=== PATIENT | female | born 1975 | race Caucasian/White ===

== ENCOUNTER 2017-01-14 07:58 | Observation (INO) | payer BC ==
--- NOTE | 2017-01-13 20:17 | PDGENHP ---
History and Physical - Chief Complaint HIP PAIN - History of Present Illness 1. Bilateral~Femoroacetabular impingement (GABRIELLA) Cam type, with~resultant labral tear;~LEFT SIDE SYMPTOMATIC 2. Left low normal/~Borderline Hip Dyplasia 3. Left Hip Arthroscopy 2015 HISTORY OF PRESENT ILLNESS: Eriis a 41 y.o.~active female~who I have had the pleasure to consult on today.~I have enjoyed meeting her. She~lives in [place], [place]. 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 ~She~is single; she~has 4~children. ~Erienjoys skiing, travel. Hunter's left~hip pain started after a fall in 2012, with some~recalled trauma or injury, and with no~previous complaints.~Eridoes not have~a known history of hip dysplasia. April 2015: left hip arthroscopy; Dr. Fernandez in [place]. ~She fell three times after this surgery. Presentation today is of~anterior, posterior left~hip pain. ~The hip does~wake her~at night and does~click and catch on her. Sitting can be a real struggle~ for her. Eridoes not~report suffering from lower back pain episodes. Erihas~participated in physical therapy and has~tried other conservative measures including cortisone hip injections (August 2014, GT took two days to get relief and lasted 7 days; January 2015, took a few days for relief and only lasted 7 days; July 2015 only lasted a couple of days) . She~has not~received sufficient symptomatic improvement. Erihas~utilized medication for pain management, including NSAID and Vicodin. Erihas used medication intermittently since the pain began. Eridenies issues with the right~hip. ~ Eriunderstands that she~has a hip and pelvis problem which should be researched and wishes to get a better understanding of her~hip status, followed by an establishment of a treatment strategy, hoping she~would be able to get back to her~well being active life. History: Past medical history: ~ Patient ~has a past medical history of Exercise-induced asthma and Pancreatitis (1998)., anxiety, depression, ADHD Relevant familial history: Father: CAD, Diabetes ~~~~~~~~~~~~~~~~~~~~~~~~~~~~~~~~~~~~Mom: hypothyroid, CRPS (hands) Past surgical history: No. Surgery Anesthesia 1 Left Hip arthroscopy general 2 Lap Ashlyn general 3 Right Knee scope general 4. ~~~~~~~~~~~~~~~~Left shoulder scope 5. ~~~~~~~~~~~~~~~~, Tubal, Hysterectomy 6. ~~~~~~~~~~~~~~~~Breast reduction x2 7. ~~~~~~~~~~~~~~~~Abdominoplasty Eridenies problematic issues with general anesthesia in the past. I have reviewed, verified and agree with the past medical, surgical, family and social history. Current Medications:~has a current medication list which includes the following prescription(s): aripiprazole, bupropion, methylphenidate, and zolpidem. ALLERGIES:~is allergic to morphine; advair diskus [fluticasone-salmeterol]; benicar [olmesartan]; ceclor [cefaclor]; ibuprofen; latex; penicillins; and prednisone. Objective: Physical Examination: Eriis 5~feet 2~inches tall and weighs~164~Lbs. Eriis AAO x3; she~is well- nourished, in NAD. Skin is warm and dry. ~Breathing is non-labored. ~CV with RRR by pulse. Abdomen is soft, NTND. Currently, she~walks with a abnormal antalgic favoring right side~gait. Trendelenburg sign is negative~and proprioception~is reduced, left~side. She~presents~with mild~signs of joint laxity.~Beightons Score: 3 Lower spine examination is negative~for sciatic or femoral nerve irritation with negative~SLR &~femoral stretch tests. Range of motion of the spine is normal~for flexion, extension, and rotations, with~associated pain. Strength, Sensation and pulses are normal - bilaterally Ankles and knees exams are normal~and no~mal-alignment is evident. She~has~no leg length discrepancy. Thigh circumference is asymmetric~with low~muscle atrophy~on left~side. Hip ROM (degrees): FL ER At 90~hip FL IR At 90~hip FL AB AD EX IR Neutral hip ER Neutral hip R 105 45 20 40 15 10 20 25 L 105 50 30 45 15 10 50 25 Specific hip and pelvis tests: Quadrant HAFSA Roll Add. Longus R Negative Negative Negative Negative L +++ +++ Negative +++ Glut. Med ITB Pos. Imp R Negative 5/5 strength Negative 5/5 strength Negative L +++ 4+/5 strength Negative 4+/5 strength Negative Squeeze test measured normal Bony Symphysis pubis is pain free~to touch while concentric activity of the rectus abdominis, does not~produce pain at its insertion. Ilio Psos specific tests are positive for pain during cycling for the left hip~ and remarkable for non painful snap HF is weak the left hip. Anterior/posterior capsule tenderness LEFT Greater trochanteric burse is painful~on the left hip. Piriformis tests: FAIR is negative, with no~local signs of neuritis related to sciatic nerve. SIJs examination is produces pain on left side~with normal~HAFSA in relation and local tenderness. Hamstrings tests are negative~functional contraction and positive~tendinopathy the left hip. On a daily basis, the following percentages reflect Erene's overall total pain: Deep hip: ~50% GT: 50% Imaging: Radiology studies which I~have personally reviewed, analyzed and measured are below: XR: AP of the hip and pelvis: Performed in a good~technique Coccyx to pubic symphysis distance 1.6~cm. 5~degrees caudal [place]~Lines are preserved. Minimal~Pathological signs are seen in the Symphysis Pubis. Minimal~Pathological signs are seen at the Ischial~tuberosity. ~ Specific measurements show: NSA~ LCE Sourcil~Angle Sharp's angle Lat. Cam Lat. Pincer C.Over~sign Head~Coverage % ATDmm R N 27 6 41 + - 12-2 84 N L N 26 9 43 + - - 77 N Pos. wall sign ISS NAD ~~Dysplasia Comments R Negative Negative 10.6~mm Negative L + Negative 10.4~mm + Sclerosis Sup. Lat. OA Cysts Joint Space-WBZ Joint Space-Medial R Negative Negative Negative 6.2~mm 5.8~mm L Negative Negative Negative 4.8~mm 5.3~mm MRI shows: good cartilage quality, no bone edema CT MEASUREMENTS: Right hip: Lateral center edge angle: 27 degrees Anterior center edge angle: 56 degrees Equatorial acetabular version angle: 20 degrees anteverted. Cranial acetabular version angle: 5 degrees anteverted. Femoral neck shaft angle: 127 degrees Femoral neck version angle: Anteverted 6 degrees Femoral shaft torsion angle: Medialized 18 degrees Left hip: Lateral center edge angle: 30 degrees Anterior center edge angle: 46 degrees Equatorial acetabular version angle: 17 degrees anteverted. Cranial acetabular version angle: 8 degrees anteverted. 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 She also have sign of borderline Left instability with low normal/high BL Dysplasia and mild tissue laxity. Physical examination, imaging, and her~story correspond with the diagnosis mentioned above. I explained that hip dysplasia is a condition wherein the hip joint has excessive play~and instability due to a variety of factors, including the depth and adequacy of the socket, the orientation of the femur bone, and ligament laxity around the hip joint. Dysplasia ranges in severity from borderline to cinthya, with treatment options being specific to the specific nature of the problem. Left untreated, the instability in the hip joint can cause progressive tearing of the labrum and deterioration of the surface cartilage, ultimately resulting in progressive osteoarthritis of the hip. I explained that femoroacetabular impingement (GABRIELLA - Cam type) arises due to a bony or soft tissue conflict between the femur (ball) and acetabulum (socket) caused by an abnormality in the shape of the femoral head and neck. Over time, repetitive impingement can result in damage to the labrum and adjacent surface cartilage within the socket, ultimately giving rise to progressive osteoarthritis of the hip. I explained that although a labral tear can be a source of pain, it is rarely the root of the problem and typically occurs secondary to an underlying abnormality in the shape and mechanics of the hip joint. I reviewed conservative treatment options for Dysplasia and GABRIELLA including activity modification to avoid positions of impingement or instability, physical therapy, non-steroidal anti-inflammatory medications, and various injections (corticosteroid and PRP) aimed at reducing inflammation in the hip joint or/and preventing dynamic instability and impingement. PRP injections may promote healing and reduce symptoms in certain cases but it will not repair chronically damaged tissue. Although these measures may help to buy time~and reduce current level of symptoms, they are not a definitive solution to the problem given the underlying abnormality in the shape of the hip joint. Patients who have failed conservative management and continue to experience symptoms are candidates for definitive surgical treatment, which may consist of hip arthroscopy alone or in combination with more invasive bony realignment procedures of the hip socket and/or femur called periacetabular osteotomy (ALEX). Hip arthroscopy typically includes treating the labrum with either repair or reconstruction of the torn labrum; as well as addressing the underlying abnormalities by restoring the normal shape to the hip joint. If the cartilage is damaged a Microfracture surgical procedure may also be necessary to help stimulate the growth of fibrocartilage. If a patient requires a labral reconstruction or a Microfracture, the initial rehabilitation from the surgery may take longer, but the terminal computer operator results are typically favorable. I reviewed the technical aspects of hip arthroscopy including risks, benefits, and expected course of recovery. Hunter~understands that hip arthroscopy is a minimally invasive outpatient procedure carried out through small incisions on the outer aspect of the hip joint. During surgery, the labral tear will be identified and either repaired or reconstructed~using bone anchors and suture material. Additionally, any excessive bone will be removed with a high-speed eliseo to reshape the hip joint and restore normal anatomy. Risks include infection, bleeding, injury to nearby nerves or vessels, stiffness, persistent pain, instability, venous thromboembolic disease, and traction related complications including temporary foot numbness. Rarely, revision surgery may be required to address these problems. Overall recovery takes approximately 4~~ 8~months depending on the extent of damage and degree of repair. In the event that the labral tissue quality is inadequate for successful repair and healing, Hunter~understands that a labral reconstruction will be performed. This procedure entails placing a cadaver tissue graft within the hip joint and stabilizing it with bone anchors to build a new labrum. The overall recovery time for labral reconstruction is similar to that of labral repair, although the surgical procedure takes longer to perform. At this time due to the very low probability Hunter will need a bony realignment procedure in the form of ALEX I did not~review the technical aspects of periacetabular osteotomy (ALEX) with her. Due to the CT being performed after we saw her, we will discuss this aspect in out next meeting or over the phone. ALEX is an inpatient procedure carried out through two medium sized incisions on the front and back of the hip joint. The hip socket is cut, realigned, and stabilized with 2 ~3 internal screws. Risks include infection, bleeding, injury to nearby nerves or vessels, stiffness, persistent pain, instability, failure of bony healing, implant related complications, and venous thromboembolic disease. Rarely, revision surgery may be required to address these problems. Risks, potential complications, side effects and recovery from surgical procedure were discussed in length. This surgery is an open procedure, and though patients tend to do well in the long-term, it involves significant pain in the first 2-4 weeks post-op and a rather lengthy rehab.~Overall recovery takes approximately 6 ~12~months depending on the extent of damage and degree of repair. Hunter~will review the info presented. In order to obtain more detailed information regarding the alignment, orientation, and shape of the bony hip and pelvis I will order a CT scan to be performed. The results of the CT scan, including femoral torsion and acetabular version measured values and 3D images, will aid me in deciding on the best treatment strategy and surgical pre-planning. Hunter~will contact us if she~wishes to pursue further treatment in the future. Hunter~is happy with this plan. I have also supplied her~with handouts, outlining the expected surgical treatment and rehab involved. I wish~Eriall the best, ~~ August Diamond, PAC History Information - Allergies/Home Medication List Allergies/Adverse Reactions: gabapentin Allergy (Severe, Verified 01/13/17 11:57) FLUID LUNGS latex Allergy (Severe, Verified 01/13/17 11:57) DYSPNEA, RASH morphine Allergy (Severe, Verified 01/13/17 11:57) Anaphylaxis amoxicillin Allergy (Intermediate, Verified 01/13/17 11:57) Rash cefaclor [From Ceclor] Allergy (Intermediate, Verified 01/13/17 11:57) Rash erythromycin base Allergy (Intermediate, Verified 01/13/17 11:57) Rash ibuprofen [From Motrin] Allergy (Intermediate, Verified 01/13/17 11:57) Rash Penicillins Allergy (Intermediate, Verified 01/13/17 11:57) Rash vancomycin Allergy (Intermediate, Verified 01/13/17 11:57) Rash fluticasone [From Advair Diskus] Allergy (Verified 01/13/17 11:57) nebivolol [From Bystolic] Allergy (Verified 01/13/17 11:57) Rash olmesartan [From Benicar] Allergy (Verified 01/13/17 11:57) Rash prednisone Allergy (Verified 01/13/17 11:57) INTOLERANCE salmeterol [From Advair Diskus] Allergy (Verified 01/13/17 11:57) Home Medications: Abilify 01/13/17 [Last Taken Unknown] Ambien 01/13/17 [Last Taken Unknown] Methylphenidate 01/13/17 [Last Taken Unknown] Wellbutrin Sr 01/13/17 [Last Taken Unknown] I have personally reviewed and updated: medical history - Social History Smoking Status: Never smoked Review of Systems Review of Systems: Physical Exam Physical Exam:
[2017-01-14] MEDS ORDERED: PREGABALIN 150 MG CAP PO ONE (08:19)
[2017-01-14] MEDS ORDERED: ACETAMINOPHEN 500 MG TAB PO ONE (08:19)
[2017-01-14] MEDS ORDERED: CLINDAMYCIN 900 MG/DEXTROSE 50 ML IV ONE (08:19)
[2017-01-14] MEDS ORDERED: EPINEPHrine 30 MG/30 ML MDV ONE (09:18)
[2017-01-14] MEDS ORDERED: BUPIVACAINE/EPI 0.5% 30 ML SDV ONE (09:18)
[2017-01-14] MEDS ORDERED: MIDAZOLAM 2 MG/2 ML VIAL IVP ONE (09:30)
--- NOTE | 2017-01-14 09:30 | PDANEPAE ---
ANE History of Present Illness 41 yo F s/p L hip trauma, s/p labral repair w femoroplasty, here for revision ANE Past Medical History - Cardiovascular History Hx Hypertension: No Hx Arrhythmias: No Hx Chest Pain: No Hx Coronary Artery / Peripheral Vascular Disease: No Hx CHF / Valvular Disease: No Hx Palpitations: No - Pulmonary History Hx COPD: No Hx Asthma/Reactive Airway Disease: Yes Hx Recent Upper Respiratory Infection: No Hx Oxygen in Use at Home: No Hx Sleep Apnea: No Sleep Apnea Screening Result - Last Documented: Negative Pulmonary History Comment: ACTIVITY INDUCED ASTHMA - Neurologic History Hx Cerebrovascular Accident: No Hx Seizures: No Hx Dementia: No Neurologic History Comment: MIGRAINES JUST STARTED RECENTLY - Endocrine History Hx Diabetes: No - Renal History Hx Renal Disorders: No - Liver History Hx Hepatic Disorders: Yes Hepatic History Comment: COLTEN. HX PANCREATITIS LAST EPISODE ONE YR AGO - Neurological & Psychiatric Hx Hx Neurological and Psychiatric Disorders: Yes Neurological / Psychiatric History Comment: DEPRESSION - Cancer History Hx Cancer: No - Congenital Disorder History Hx Congenital Disorders: No - GI History Hx Gastrointestinal Disorders: No - Other Health History Other Health History: [facility] INF ONCE SURGERY SHOULDER - Chronic Pain History Chronic Pain: Yes (L HIP) - Surgical History Prior Surgeries: CHOLECYSTECTOMY. R KNEE. L CLAVICLE/SHOULDER. R TMJ. C SECTION. HYSTERECTOMY. ABDOMINO PLASTY. BREAST REDUCTION X2 ANE Review of Systems Review of Systems: - Exercise capacity METS (RN): 4 METS ANE Patient History - Allergies Allergies/Adverse Reactions: gabapentin Allergy (Severe, Verified 01/13/17 11:57) FLUID LUNGS latex Allergy (Severe, Verified 01/13/17 11:57) DYSPNEA, RASH morphine Allergy (Severe, Verified 01/13/17 11:57) Anaphylaxis amoxicillin Allergy (Intermediate, Verified 01/13/17 11:57) Rash cefaclor [From Ceclor] Allergy (Intermediate, Verified 01/13/17 11:57) Rash erythromycin base Allergy (Intermediate, Verified 01/13/17 11:57) Rash ibuprofen [From Motrin] Allergy (Intermediate, Verified 01/13/17 11:57) Rash Penicillins Allergy (Intermediate, Verified 01/13/17 11:57) Rash vancomycin Allergy (Intermediate, Verified 01/13/17 11:57) Rash fluticasone [From Advair Diskus] Allergy (Verified 01/13/17 11:57) nebivolol [From Bystolic] Allergy (Verified 01/13/17 11:57) Rash olmesartan [From Benicar] Allergy (Verified 01/13/17 11:57) Rash prednisone Allergy (Verified 01/13/17 11:57) INTOLERANCE salmeterol [From Advair Diskus] Allergy (Verified 01/13/17 11:57) - Home Medications Home Medications: Abilify 01/13/17 [Last Taken 01/13/17 19:00] Ambien 01/13/17 [Last Taken 01/12/17] Methylphenidate 01/13/17 [Last Taken 01/12/17] Wellbutrin Sr 01/13/17 [Last Taken 01/13/17 19:00] - NPO status NPO Status: no food or drink >8 hours NPO Since - Liquids (Date): 01/13/17 NPO Since - Liquids (Time): 19:00 NPO Since - Solids (Date): 01/13/17 NPO Since - Solids (Time): 17:30 - Anes Hx Anes Hx: post operative nausea and vomiting - Smoking Hx Smoking Status: Never smoked - Alcohol Use Alcohol Use: None - Family Anes Hx Family Anes Hx: none Family Hx Anesthesia Complications: NEG ANE Labs/Vital Signs - Vital Signs Blood Pressure: 145/98 Heart Rate: 99 Respiratory Rate: 16 O2 Sat (%): 99 Height: 160.02 cm Weight: 73.482 kg ANE Physical Exam - Airway Neck exam: FROM Mallampati Score: Class 2 Mouth exam: normal dental/mouth exam - Pulmonary Pulmonary: no respiratory distress, clear to auscultation - Cardiovascular Cardiovascular: regular rate and rhythym, no murmur, rub, or gallop - ASA Status ASA Status: II ANE Anesthesia Plan Anesthesia Plan: general endotracheal anesthesia (1/2 mac propofol) Total IV Anesthesia: Yes
[2017-01-14] MEDS ORDERED: MIDAZOLAM 2 MG/2 ML VIAL ONE (09:33)
[2017-01-14] MEDS ORDERED: PROPOFOL/EMULSION 500 MG/50 ML BOTTLE IV ONE ×3 (09:35→12:32)
[2017-01-14] MEDS ORDERED: PROPOFOL 200 MG/20 ML VIAL ONE (09:35)
[2017-01-14] MEDS ORDERED: fentaNYL 100 MCG/2 ML INJ ONE ×3 (09:35→14:35)
[2017-01-14] MEDS ORDERED: KETAMINE 100 MG/10 ML SYR ONE (09:35)
[2017-01-14] MEDS ORDERED: LIDOCAINE 2% 100 MG/5 ML SYR ONE (09:36)
[2017-01-14] MEDS ORDERED: ONDANSETRON 4 MG/2 ML VIAL ONE ×2 (10:47→15:20)
[2017-01-14] MEDS ORDERED: DEXAMETHASONE 4 MG/ML VIAL ONE (10:47)
[2017-01-14] MEDS ORDERED: HYDROmorphONE/DILAUDID 2 MG/ML INJ ONE ×3 (11:09→16:50)
[2017-01-14] MEDS ORDERED: LABETALOL HCL 5 MG/ML 20 ML MDV ONE (12:46)
[2017-01-14] MEDS ORDERED: ONDANSETRON 4 MG/2 ML VIAL IVP PRN (14:17)
[2017-01-14] MEDS ORDERED: OXYCODONE/APAP 5/325 TAB PO PRN (14:17)
[2017-01-14] MEDS ORDERED: ACETAMINOPHEN 500 MG TAB PO PRN (14:17)
[2017-01-14] MEDS ORDERED: PROMETHAZINE HCL 25 MG/ML INJ IVP PRN (14:17)
[2017-01-14] MEDS ORDERED: NALOXONE HCL 0.4 MG/ML INJ IVP PRN (14:17)
[2017-01-14] MEDS ORDERED: ALBUTEROL 3 ML DEYVIAL IH PRN (14:17)
[2017-01-14] MEDS ORDERED: HYDROmorphONE/DILAUDID 1 MG/ML INJ ONE (14:35)
[2017-01-14] MEDS: fentaNYL 100 MCG/2 ML INJ IVP PRN ×2 (14:37→14:46)
--- NOTE | 2017-01-14 14:42 | POSTANESTH ---
Post Anesthetic Evaluation Cardiovascular Status: Normal, Stable, Similar to Pre-Op Cond Respiratory Status: Normal, Stable, Similar to Pre-op Cond. Level of Consciousness/Mental Status: Can Participate in Eval, Alert and Oriented Pain Control: Inadeq, Add Tx Required Nausea/Vomiting Control: Adequate, Prn Tx Ordered Complications Possibly Related to Anesthesia: None Noted
[2017-01-14] MEDS ORDERED: MEPERIDINE 25 MG/ML SYR ONE (15:01)
[2017-01-14] MEDS ORDERED: MEPERIDINE 25 MG/ML SYR IVP ONE (15:15)
[2017-01-14] MEDS: HYDROmorphONE/DILAUDID 1 MG/ML INJ IVP PRN ×3 (15:25→17:27)
[2017-01-14] MEDS ORDERED: HYDROCODONE/APAP 5/325 TAB ONE ×2 (15:33→16:19)
[2017-01-14] MEDS: HYDROCODONE/APAP 5/325 TAB PO PRN ×2 (15:34→16:21)
[2017-01-14] MEDS ORDERED: DIAZEPAM 10 MG/2 ML SYR IVP ONE (18:00)
[2017-01-14] MEDS: oxyCODONE IR 5 MG TAB PO PRN ×2 (19:33→23:28)
[2017-01-14] MEDS: HYDROmorphone HCL/NS/PF 0.4 MG/2 ML SYR IVP PRN ×3 (19:33→22:46)
[2017-01-14] MEDS: ONDANSETRON DISINTEGRATING 4 MG TAB PO PRN (22:18)
--- NOTE | 2017-01-14 22:22 | SUROPNOTE ---
DANIELA Operative Report - Surgery Surgery was performed at [facility] on 01/14/17 ~~ OPERATION NOTE~on Hunter Bowling Diagnosis: 1. Left Femoroacetabular impingement (GABRIELLA) residual Cam type, with~resultant labral tear 2. Left Borderline Hip Dyplasia with deficient anterior capsule s/p hip scope 2015 3. Left IP anchor Indication: Failure to obtain satisfactory results with long standing conservative measures. Operation:~Left REVISION~Arthroscopic Labral reconstruction/augmentation, residual CAM resection, Synovectomy, shaving/reducing of proud IP anchor, plicating of anterior capsule, LT stabilization Surgeon: ~~~~~~~~~~~Tristen Gómez MD ~ Ordering Box Operator:~~~Cristobal NOEL Anaesthetic:~~~~~~~General Findings~~Left~Hip: Labrum: Torn and Frayed around 1-4~O'clock with 3 anchor sutures, questionable seal affect 1-3 o'clock Acetabulum: Cartilage damage grade 1~extending around chondrolabral junction, circumferentially - early degeneration Fovea: Partial tear of LT with severe synovitis Femoral Head: Normal cartilage aside some minimal medial head damage and some G1 /frying at the WBZ Synovium: severe~synovitis Peripheral Compartment: Anterolateral CAM - steep resection 12-3, residual cam 3 -6 Procedure: Supine on operating table. General anaesthetic. Antibiotics given. Standard traction set up, without perineal post. A spinal needle was guided to the femoral head neck junction and traction gradually applied with the joint vented. Local anesthetic infiltrated into the skin around the portals. Once 20mm of distraction was achieved the hip needle was then passed into the joint staying as close to the femoral head as possible. Distraction was extremely easy indicating some hyperlaxity/instability. A Nytenol wire was passed through the hip needle ensuring that it passed all the way to the fovea to confirm central placement of the needle. Skin was incised and then the portals sequentially dilated to 7 mm. Switching stick inserted and 30 scope passed over the top. Under dry scope conditions the anterior portal was created by passing the hip needle into the joint under direct vision. Again this was dilated up to 7 mm and the slotted canule was inserted. The saline was then turned on and the joint irrigated. The joint was carefully inspected and photographed with findings as above. The arthroscope was switched to the 70 scope to complete the inspection. A longitudinal intra portal capsulotomy was then performed using pechanga blade and the 50 Arthrocare wand to connect the two portals. Central Compartment Intervention: Synovectomy was performed. Anterior capsule was found to be missing/deficient. With the assistance of the wand the acatabular rim was then exposed between 12~ and 4~Oclock and was slightly refined with a motorized eliseo to achieve a bleeding bone for optimal labral healing. The labrum was then reconstructed with TFL allograft~with 4~peek anchors, achieving good anatomical rim fixation. The graft was prepared over sized and placed behind table mountain labrum tissue to create a "bumper" to increase seal and stability. LT was treated with RF wand to shrink and stabilize reactive tissue.~through small capsular window the space under the IP was developed to expose a tract for old anchor which was possibly irritating the IP, the area was smoothen up. Peripheral Compartment Intervention: Traction was released. Previous cam resection 12-3 was very steep and HNJ margin was smoothen up. There was residual cam 3-6 o'clock and this was reduced with a eliseo. A dynamic impingement test was undertaken and vision with 90 of flexion and 10 of internal rotation to confirm that there was no bony or soft tissue impingement or deformation of the labrum. ~Good clearance was obtained with good labral seal. The joint was thoroughly irrigated of any loose debris and the anterior capsule was repaired with 6~No.1 vicryl stitches, plicating and tightening 80% of the capsulotomy. The skin was then closed with Nylon. Padded dressing was applied. After surgery, Erene~moved both lower limbs and had no NV compromise.~ Post op instructions: 1. Partial~weight bearing crutches for 2~weeks 2. Pain killers as prescribed 3. Follow up visit with me, as scheduled, where a rehab protocol would be discussed 4. Avoid hip external rotation for 4 weeks 5. ~~25 days of NSAIDS need to be taken in order to prevent the possible formation of HO ~ Kind regards, ~~ Dr. Tristen Gómez
[2017-01-15] MEDS: HYDROmorphone HCL/NS/PF 0.4 MG/2 ML SYR IVP PRN ×4 (01:08→12:37)
[2017-01-15] MEDS: ONDANSETRON DISINTEGRATING 4 MG TAB PO PRN (03:45)
[2017-01-15] MEDS: PROMETHAZINE HCL 25 MG/ML INJ IVP PRN ×2 (04:08→10:21)
[2017-01-15] MEDS: oxyCODONE IR 5 MG TAB PO PRN ×3 (04:34→16:09)
[2017-01-15] MEDS: DIAZEPAM 5 MG TAB PO PRN ×2 (07:34→16:09)
[2017-01-15 10:57] VITALS: RESP 16
[2017-01-15 15:28] VITALS: BP 109/69; PULSE 75; TEMP 98.2; O2SAT 95
--- NOTE | 2017-01-15 16:00 | ASMTCMCOM ---
CM Note CM Note Notes: Reviewed chart and discussed with RN. Pt will dc home with no CM needs. She is from [place] and plans on going [place] with fiance. She may need for us to fill out some hospital endemnity paperwork for an [employer] Disability policy. I gave her Case Management #'s and fax # to send paperwork too and advised her that [facility] surgeon's office would likely have portion to complete as well. Date Signed: 01/15/2017 04:00 PM Electronically Signed By:Yudelka Vega RN
--- NOTE | 2017-01-16 16:20 | ASDISCHSUM ---
Discharge Information Plan Status:Home with No Needs Medically Cleared to Leave: Discharge Date:01/15/2017 04:43 PM CM D/C Disposition:Home, Routine, Self-Care ADT D/C Disposition:Home, Routine, Self-Care Projected Discharge Date:01/15/2017 04:43 PM Transportation at D/C:Family Discharge Delay Reason: Follow-Up Date:01/15/2017 04:43 PM Discharge Slot: Final Diagnosis: Placement Information Patient Contact Information Contact Name:MARCO A Relationship:Other Address: Work Phone: City: [facility] Phone: State/Zip Code: Email: Financial Information Financial Class:HMO and PPO Plans Primary Plan Desc: OUT OF STATE PPO Primary Plan Number:[id number] Secondary Plan Desc: Secondary Plan Number: Assessment Information [facility] CM Progress Note CM Note CM Note Notes: Reviewed chart and discussed with RN. Pt will dc home with no CM needs. She is from [place] and plans on going cuco with pietro. She may need for us to fill out some hospital endemnity paperwork for an [employer] Disability policy. I gave her Case Management #'s and fax # to send paperwork too and advised her that aidan surgeon's office would likely have portion to complete as well. Date Signed: 01/15/2017 04:00 PM Electronically Signed By:Yudelka Vega RN Intervention Information
--- NOTE | 2017-01-16 16:20 | ASDISCHSUM ---
Discharge Information Plan Status:Home with No Needs Medically Cleared to Leave: Discharge Date:01/15/2017 04:43 PM CM D/C Disposition:Home, Routine, Self-Care ADT D/C Disposition:Home, Routine, Self-Care Projected Discharge Date:01/15/2017 04:43 PM Transportation at D/C:Family Discharge Delay Reason: Follow-Up Date:01/15/2017 04:43 PM Discharge Slot: Final Diagnosis: Placement Information Patient Contact Information Contact Name:MARCO A Relationship:Other Address: Work Phone: City: [facility] Phone: State/Zip Code: Email: Financial Information Financial Class:HMO and PPO Plans Primary Plan Desc: OUT OF STATE PPO Primary Plan Number:[id number] Secondary Plan Desc: Secondary Plan Number: Assessment Information [facility] CM Progress Note CM Note CM Note Notes: Reviewed chart and discussed with RN. Pt will dc home with no CM needs. She is from [place] and plans on going cuco with pietro. She may need for us to fill out some hospital endemnity paperwork for an [employer] Disability policy. I gave her Case Management #'s and fax # to send paperwork too and advised her that aidan surgeon's office would likely have portion to complete as well. Date Signed: 01/15/2017 04:00 PM Electronically Signed By:Yudelka Vega RN Intervention Information
--- NOTE | 2017-01-16 16:20 | ASDISCHSUM ---
Discharge Information Plan Status:Home with No Needs Medically Cleared to Leave: Discharge Date:01/15/2017 04:43 PM CM D/C Disposition:Home, Routine, Self-Care ADT D/C Disposition:Home, Routine, Self-Care Projected Discharge Date:01/15/2017 04:43 PM Transportation at D/C:Family Discharge Delay Reason: Follow-Up Date:01/15/2017 04:43 PM Discharge Slot: Final Diagnosis: Placement Information Patient Contact Information Contact Name:MARCO A Relationship:Other Address: Work Phone: City: [facility] Phone: State/Zip Code: Email: Financial Information Financial Class:HMO and PPO Plans Primary Plan Desc: OUT OF STATE PPO Primary Plan Number:[id number] Secondary Plan Desc: Secondary Plan Number: Assessment Information [facility] CM Progress Note CM Note CM Note Notes: Reviewed chart and discussed with RN. Pt will dc home with no CM needs. She is from [place] and plans on going cuco with pietro. She may need for us to fill out some hospital endemnity paperwork for an [employer] Disability policy. I gave her Case Management #'s and fax # to send paperwork too and advised her that aidan surgeon's office would likely have portion to complete as well. Date Signed: 01/15/2017 04:00 PM Electronically Signed By:Yudelka Vega RN Intervention Information
== END 2017-01-15 16:43 | disposition home or self-care (01) ==
LOC: FSGY 07:58 → F3N 17:12
PROVIDERS: ADMIT Orthopaedic Surgery Sports Medicine; ATTEND Orthopaedic Surgery Sports Medicine
PROC: 0SQB4ZZ Repair Left Hip Joint, Percutaneous Endoscopic Approach (ICD-10-PCS; principal; 2017-01-14 09:45)
CPT/HCPCS: 29914; 29916; 76001; 97161; C1769; G0378; C1713; C1762; J1100; J1170; J2001; J2250; J2405; J2550; J2704; J3010; J3490

== ENCOUNTER 2018-04-24 09:06 | Observation (INO) | payer BC ==
--- NOTE | 2018-04-23 18:08 | PDGENHP ---
History and Physical - Chief Complaint LEFT HIP PAIN - History of Present Illness 1. Bilateral~Femoroacetabular impingement (GABRIELLA) Cam type,~with~resultant labral tear 2. Left~low normal/~Borderline Hip Dyplasia 3. 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 ~Erienjoys skiing, travel. Hunter's~LEFT~hip pain started after a fall in 2012, with~some~recalled trauma or injury, and with~no~previous complaints.~Eridoes not have~a known history of hip dysplasia. April 2015: left hip arthroscopy; Dr. Fernandez in [place]. ~She fell three times after this surgery. Presentation today is of~anterior, posterior~left~hip pain. ~The hip~does~wake her~at night and~does~click and catch on~her. Sitting~can be a real struggle~ for her.~Eridoes not~report suffering from lower back pain episodes. Erihas~participated in physical therapy and has~tried other conservative measures including cortisone~hip injections~(August 2014, GT took two days to get relief and lasted 7 days; January 2015, took a few days for relief and only lasted 7 days; July 2015 only lasted a couple of days)~.~She~has not~received sufficient symptomatic improvement. Hunter~has~utilized medication for pain management, including NSAID and Vicodin.~ Erihas used medication intermittently since the pain began. Eridenies issues with the right~hip. ~ Eriunderstands that~maggie~has a hip and pelvis problem which should be researched and wishes to get a better understanding of~her~hip status, followed by an establishment of a treatment strategy, hoping~maggie~would be able to get back to~her~well being active life. History: Past medical history:~~ Patient~~has a past medical history of Exercise-induced asthma and Pancreatitis (1998)., anxiety, depression, ADHD Relevant familial history:~Father: CAD, Diabetes ~~~~~~~~~~~~~~~~~~~~~~~~~~~~~~~~~~~~Mom: hypothyroid, CRPS (hands) Past surgical history:~ No. Surgery Anesthesia 1 Left Hip arthroscopy general 2 Lap Ashlyn general 3 Right Knee scope general 4. ~~~~~~~~~~~~~~~~Left shoulder scope 5. ~~~~~~~~~~~~~~~~, Tubal, Hysterectomy 6. ~~~~~~~~~~~~~~~~Breast reduction x2 7. ~~~~~~~~~~~~~~~~Abdominoplasty Eridenies problematic issues with general anesthesia in the past. I have reviewed, verified and agree with the past medical, surgical, family and social history. Current Medications:~has a current medication list which includes the following prescription(s): aripiprazole, bupropion, methylphenidate, and zolpidem. ALLERGIES:~is allergic to morphine; advair diskus [fluticasone-salmeterol]; benicar [olmesartan]; ceclor [cefaclor]; ibuprofen; latex; penicillins; and prednisone. Objective: Physical Examination: Eriis 5~feet~2~inches tall and weighs~164~Lbs. Hunter~is AAO x3; she~is well- nourished, in NAD. Skin is warm and dry. ~Breathing is non-labored. ~CV with RRR by pulse. Abdomen is soft, NTND. Currently,~she~walks with a~abnormal~antalgic favoring right side~gait. Trendelenburg sign is~negative~and proprioception~is reduced,~left~side. She~presents~with mild~signs of joint laxity.~Beightons Score:~3 Lower spine examination is~negative~for sciatic or femoral nerve irritation with negative~SLR &~femoral stretch tests. Range of motion of the spine is normal~for flexion, extension, and rotations,~with~associated pain. Strength, Sensation and pulses are~normal -~bilaterally Ankles and knees exams are~normal~and~no~mal-alignment is evident.~ She~has~no leg length discrepancy. Thigh circumference is~asymmetric~with low~muscle atrophy~on left~side. Hip ROM (degrees): FL ER At 90~hip FL IR At 90~hip FL AB AD EX IR Neutral hip ER Neutral hip R 105 45 20 40 15 10 20 25 L 105 50 30 45 15 10 50 25 Specific hip and pelvis tests: Quadrant HAFSA Roll Add. Longus R Negative Negative Negative Negative L +++ +++ Negative +++ Glut. Med ITB Pos. Imp R Negative 5/5 strength Negative 5/5 strength Negative L +++ 4+/5 strength Negative 4+/5 strength Negative Squeeze test measured~normal Bony Symphysis pubis is~pain free~to touch while concentric activity of the rectus abdominis, does not~produce pain at its insertion. Ilio Psos specific tests are~positive for pain during cycling for~the left hip~ and remarkable for non painful snap HF~is weak~the left hip. Anterior/posterior~capsule tenderness~LEFT Greater trochanteric burse is~painful~on the left hip. Piriformis tests: FAIR is~negative,~with no~local signs of neuritis related to sciatic nerve. SIJs examination is~produces pain on~left side~with~normal~HAFSA in relation and local tenderness. Hamstrings tests are~negative~functional contraction and positive~tendinopathy the left hip. On a daily basis, the following percentages reflect~Erene's overall total pain: Deep hip:~~50% GT:~50% Imaging: Radiology studies which I~have personally reviewed, analyzed and measured are below: XR: AP of the hip and pelvis: Performed in a~good~technique Coccyx to pubic symphysis distance~1.6~cm. 5~degrees caudal [place]~Lines are preserved. Minimal~Pathological signs are seen in the Symphysis Pubis.~ Minimal~Pathological signs are seen at the Ischial~tuberosity. ~ Specific measurements show: NSA~ LCE Sourcil~Angle Sharp's angle Lat. Cam Lat. Pincer C.Over~sign Head~Coverage % ATDmm R N 27 6 41 + - 12-2 84 N L N 26 9 43 + - - 77 N Pos. wall sign ISS NAD ~~Dysplasia Comments R Negative Negative 10.6~mm Negative L + Negative 10.4~mm + Sclerosis Sup. Lat. OA Cysts Joint Space-WBZ Joint Space-Medial R Negative Negative Negative 6.2~mm 5.8~mm L Negative Negative Negative 4.8~mm 5.3~mm MRI shows:~good cartilage quality, no bone edema CT~MEASUREMENTS: Right hip: Lateral center edge angle: 27 degrees Anterior center edge angle: 56 degrees Equatorial acetabular version angle: 20 degrees anteverted. Cranial acetabular version angle: 5 degrees anteverted. Femoral neck shaft angle: 127 degrees Femoral neck version angle: Anteverted 6 degrees Femoral shaft torsion angle: Medialized 18 degrees Left hip: Lateral center edge angle: 30 degrees Anterior center edge angle: 46 degrees Equatorial acetabular version angle: 17 degrees anteverted. Cranial acetabular version angle: 8 degrees anteverted. Femoral neck shaft angle: 133 degrees Femoral neck version angle: Anteverted 17 degrees Femoral shaft torsion angle: Medialized 17 degrees Impression and plan: ~ Eriis a~43 y.o.~active female~suffering from symptomatic~left~hip pain due to Bilateral~Femoroacetabular impingement (GABRIELLA) Cam type~(Left residual cam),~ with~resultant labral tear~causing significant disability to~her~and altering~ her~sport and life activities. She also have sign of borderline~Left~instability with low normal/high BL Dysplasia and mild tissue laxity. Physical examination, imaging, and~her~story correspond with the diagnosis mentioned above. I explained that hip dysplasia is a condition wherein the hip joint has excessive play~and instability due to a variety of factors, including the depth and adequacy of the socket, the orientation of the femur bone, and ligament laxity around the hip joint. Dysplasia ranges in severity from borderline to cinthya, with treatment options being specific to the specific nature of the problem. Left untreated, the instability in the hip joint can cause progressive tearing of the labrum and deterioration of the surface cartilage, ultimately resulting in progressive osteoarthritis of the hip. I explained that femoroacetabular impingement (GABRIELLA - Cam type) arises due to a bony or soft tissue conflict between the femur (ball) and acetabulum (socket) caused by an abnormality in the shape of the femoral head and neck. Over time, repetitive impingement can result in damage to the labrum and adjacent surface cartilage within the socket, ultimately giving rise to progressive osteoarthritis of the hip. I explained that although a labral tear can be a source of pain, it is rarely the root of the problem and typically occurs secondary to an underlying abnormality in the shape and mechanics of the hip joint. I reviewed conservative treatment options for Dysplasia and GABRIELLA including activity modification to avoid positions of impingement or instability, physical therapy, non-steroidal anti-inflammatory medications, and various injections (corticosteroid and PRP) aimed at reducing inflammation in the hip joint or/and preventing dynamic instability and impingement. PRP injections may promote healing and reduce symptoms in certain cases but it will not repair chronically damaged tissue. Although these measures may help to buy time~and reduce current level of symptoms, they are not a definitive solution to the problem given the underlying abnormality in the shape of the hip joint. Patients who have failed conservative management and continue to experience symptoms are candidates for definitive surgical treatment, which may consist of hip arthroscopy alone or in combination with more invasive bony realignment procedures of the hip socket and/or femur called periacetabular osteotomy (ALEX). Hip arthroscopy typically includes treating the labrum with either repair or reconstruction of the torn labrum; as well as addressing the underlying abnormalities by restoring the normal shape to the hip joint. If the cartilage is damaged a Microfracture surgical procedure may also be necessary to help stimulate the growth of fibrocartilage. If a patient requires a labral reconstruction or a Microfracture, the initial rehabilitation from the surgery may take longer, but the shelter results are typically favorable. I reviewed the technical aspects of hip arthroscopy including risks, benefits, and expected course of recovery.~Hunter~understands that hip arthroscopy is a minimally invasive outpatient procedure carried out through small incisions on the outer aspect of the hip joint. During surgery, the labral tear will be identified and either repaired or reconstructed~using bone anchors and suture material. Additionally, any excessive bone will be removed with a high-speed eliseo to reshape the hip joint and restore normal anatomy. Risks include infection, bleeding, injury to nearby nerves or vessels, stiffness, persistent pain, instability, venous thromboembolic disease, and traction related complications including temporary foot numbness. Rarely, revision surgery may be required to address these problems. Overall recovery takes approximately 4~ 8~months depending on the extent of damage and degree of repair. In the event that the labral tissue quality is inadequate for successful repair and healing,~Hunter~understands that a labral reconstruction will be performed. This procedure entails placing a cadaver tissue graft within the hip joint and stabilizing it with bone anchors to build a new labrum. The overall recovery time for labral reconstruction is similar to that of labral repair, although the surgical procedure takes longer to perform. At this time due to the very low probability Hunter will need a bony realignment procedure in the form of ALEX I did not~review the technical aspects of periacetabular osteotomy (ALEX) with her.~ Due to the CT being performed after we saw her, we will discuss this aspect in out next meeting or over the phone. ALEX is an inpatient procedure carried out through two medium sized incisions on the front and back of the hip joint. The hip socket is cut, realigned, and stabilized with 2 3 internal screws. Risks include infection, bleeding, injury to nearby nerves or vessels, stiffness, persistent pain, instability, failure of bony healing, implant related complications, and venous thromboembolic disease. Rarely, revision surgery may be required to address these problems. Risks, potential complications, side effects and recovery from surgical procedure were discussed in length.~This surgery is an open procedure, and though patients tend to do well in the long-term, it involves significant pain in the first 2-4 weeks post-op and a rather lengthy rehab.~Overall recovery takes approximately 6 12~months depending on the extent of damage and degree of repair. Hunter~will review the info presented. In order to obtain more detailed information regarding the alignment, orientation, and shape of the bony hip and pelvis I will order a CT scan to be performed. The results of the CT scan, including femoral torsion and acetabular version measured values and 3D images, will aid me in deciding on the best treatment strategy and surgical pre-planning. Hunter~will contact us if she~wishes to pursue further treatment in the future. Lillyrita~is happy with this plan. I have also supplied~her~with handouts, outlining the expected surgical treatment and rehab involved. I wish~Hunter~all the best, ~~ August Diamond, PAC History Information - Allergies/Home Medication List Allergies/Adverse Reactions: adhesive tape Allergy (Severe, Verified 04/07/18 13:29) Unknown gabapentin Allergy (Severe, Verified 04/06/18 10:39) FLUID LUNGS latex Allergy (Severe, Verified 04/06/18 10:39) DYSPNEA, RASH methylprednisolone [From Solu-Medrol] Allergy (Severe, Verified 04/07/18 13:29) Unknown morphine Allergy (Severe, Verified 04/06/18 10:39) Anaphylaxis nebivolol [From Bystolic] Allergy (Severe, Verified 04/07/18 13:29) Rash olmesartan [From Benicar] Allergy (Severe, Verified 04/07/18 13:29) Rash prednisone Allergy (Severe, Verified 04/07/18 13:29) INTOLERANCE salmeterol [From Advair Diskus] Allergy (Severe, Verified 04/07/18 13:29) amoxicillin Allergy (Intermediate, Verified 04/06/18 10:39) Rash cefaclor [From Ceclor] Allergy (Intermediate, Verified 04/06/18 10:39) Rash erythromycin base Allergy (Intermediate, Verified 04/06/18 10:39) Rash ibuprofen [From Motrin] Allergy (Intermediate, Verified 04/06/18 10:39) Rash Penicillins Allergy (Intermediate, Verified 04/06/18 10:39) Rash vancomycin Allergy (Intermediate, Verified 04/06/18 10:39) Rash Home Medications: ARIPiprazole [Aripiprazole] 20 mg PO HS 04/07/18 [Last Taken Unknown] Hydrocodone/Acetaminophen [Hydrocodon-Acetaminoph 7.5-325] 1 each PO TID PRN [Last Taken Unknown] Methylphenidate HCl [Ritalin 5mg (*)] 10 mg PO TID 04/07/18 [Last Taken Unknown] Ondansetron Odt [Zofran Odt 4 mg (*)] 4 mg PO BID PRN 04/07/18 [Last Taken Unknown] Pantoprazole Sodium [Protonix 40mg (*)] 40 mg PO BID 04/07/18 [Last Taken Unknown] Zolpidem Tartrate [Ambien 5MG (*)] 10 mg PO HS 04/07/18 [Last Taken Unknown] buPROPion XL [Wellbutrin Xl] 150 mg PO HS 04/07/18 [Last Taken Unknown] I have personally reviewed and updated: medical history - Social History Smoking Status: Never smoked Review of Systems Review of Systems: Physical Exam Physical Exam:
[2018-04-24] MEDS ORDERED: ACETAMINOPHEN 500 MG TAB PO ONE (09:18)
[2018-04-24] MEDS ORDERED: ceFAZolin 2 GM/DEXTROSE 100 ML IV ONE (09:18)
[2018-04-24] MEDS ORDERED: PREGABALIN 150 MG CAP PO ONE (09:18)
[2018-04-24] MEDS ORDERED: LIDOCAINE 1% 2 ML INJ ID PRN (09:19)
[2018-04-24] MEDS ORDERED: LR 1,000 ML IV ONE (09:19)
[2018-04-24] MEDS ORDERED: EPINEPHrine 1 MG/ML INJ ONE (09:38)
[2018-04-24] MEDS ORDERED: BUPIVACAINE 0.25% 30 ML SDV ONE (09:38)
[2018-04-24] MEDS ORDERED: EPINEPHrine 30 MG/30 ML MDV (0.1 MG/0.1 ML) ONE (09:38)
[2018-04-24] MEDS ORDERED: ACETAMINOPHEN 500 MG TAB ONE (10:18)
--- NOTE | 2018-04-24 12:31 | PDANEPAE ---
ANE History of Present Illness here for hip arthroscopy ANE Past Medical History - Cardiovascular History Hx Hypertension: No Hx Arrhythmias: No Hx Chest Pain: No Hx Coronary Artery / Peripheral Vascular Disease: No Hx CHF / Valvular Disease: No Hx Palpitations: No - Pulmonary History Hx COPD: No Hx Asthma/Reactive Airway Disease: Yes Hx Recent Upper Respiratory Infection: No Hx Oxygen in Use at Home: No Hx Sleep Apnea: No Sleep Apnea Screening Result - Last Documented: Negative Pulmonary History Comment: EXERCISE INDUCED ASTHMA - Neurologic History Hx Cerebrovascular Accident: No Hx Seizures: No Hx Dementia: No Neurologic History Comment: MIGRAINES JUST STARTED RECENTLY - Endocrine History Hx Diabetes: No - Renal History Hx Renal Disorders: No - Liver History Hx Hepatic Disorders: Yes Hepatic History Comment: COLTEN. HX PANCREATITIS LAST EPISODE ONE YR AGO - Neurological & Psychiatric Hx Hx Neurological and Psychiatric Disorders: Yes Neurological / Psychiatric History Comment: DEPRESSION - Cancer History Hx Cancer: No - Congenital Disorder History Hx Congenital Disorders: No - GI History Hx Gastrointestinal Disorders: No Gastrointestinal History Comment: acid reflux, nausea - Other Health History Other Health History: [employer] INF ONCE SURGERY SHOULDER. hx of pancreatitis post procedures - Chronic Pain History Chronic Pain: Yes (L HIP) - Surgical History Prior Surgeries: CHOLECYSTECTOMY. R KNEE. L CLAVICLE/SHOULDER. R TMJ. C SECTION. HYSTERECTOMY. ABDOMINO PLASTY. BREAST REDUCTION X2 ANE Review of Systems Review of Systems: - Exercise capacity METS (RN): 6 METS ANE Patient History - Allergies Allergies/Adverse Reactions: adhesive tape Allergy (Severe, Verified 04/07/18 13:29) Unknown gabapentin Allergy (Severe, Verified 04/06/18 10:39) FLUID LUNGS latex Allergy (Severe, Verified 04/06/18 10:39) DYSPNEA, RASH methylprednisolone [From Solu-Medrol] Allergy (Severe, Verified 04/07/18 13:29) Unknown morphine Allergy (Severe, Verified 04/06/18 10:39) Anaphylaxis nebivolol [From Bystolic] Allergy (Severe, Verified 04/07/18 13:29) Rash olmesartan [From Benicar] Allergy (Severe, Verified 04/07/18 13:29) Rash prednisone Allergy (Severe, Verified 04/07/18 13:29) INTOLERANCE salmeterol [From Advair Diskus] Allergy (Severe, Verified 04/07/18 13:29) amoxicillin Allergy (Intermediate, Verified 04/06/18 10:39) Rash cefaclor [From Ceclor] Allergy (Intermediate, Verified 04/06/18 10:39) Rash erythromycin base Allergy (Intermediate, Verified 04/06/18 10:39) Rash ibuprofen [From Motrin] Allergy (Intermediate, Verified 04/06/18 10:39) Rash Penicillins Allergy (Intermediate, Verified 04/06/18 10:39) Rash vancomycin Allergy (Intermediate, Verified 04/06/18 10:39) Rash - Home Medications Home Medications: ARIPiprazole [Aripiprazole] 20 mg PO HS 04/07/18 [Last Taken 04/23/18] Hydrocodone/Acetaminophen [Hydrocodon-Acetaminoph 7.5-325] 1 each PO TID PRN [Last Taken 04/22/18] Methylphenidate HCl [Ritalin 5mg (*)] 10 mg PO TID 04/07/18 [Last Taken 04/22/18 ] Ondansetron Odt [Zofran Odt 4 mg (*)] 4 mg PO BID PRN 04/07/18 [Last Taken 04/23] Pantoprazole Sodium [Protonix 40mg (*)] 40 mg PO BID 04/07/18 [Last Taken ] Zolpidem Tartrate [Ambien 5MG (*)] 10 mg PO HS 04/07/18 [Last Taken 04/23/18] buPROPion XL [Wellbutrin Xl] 150 mg PO HS 04/07/18 [Last Taken 04/23/18] - NPO status NPO Status: no food or drink >8 hours NPO Since - Liquids (Date): 04/24/18 NPO Since - Liquids (Time): 07:00 NPO Since - Solids (Date): 04/23/18 NPO Since - Solids (Time): 20:00 - Anes Hx Anes Hx: post operative nausea and vomiting - Smoking Hx Smoking Status: Never smoked - Family Anes Hx Family Anes Hx: none Family Hx Anesthesia Complications: none ANE Labs/Vital Signs - Vital Signs Blood Pressure: 130/90 Heart Rate: 83 Respiratory Rate: 16 O2 Sat (%): 96 Height: 160.02 cm Weight: 71.668 kg ANE Physical Exam - Airway Neck exam: FROM Mallampati Score: Class 2 Mouth exam: normal dental/mouth exam - Pulmonary Pulmonary: no respiratory distress, clear to auscultation - Cardiovascular Cardiovascular: regular rate and rhythym, no murmur, rub, or gallop - ASA Status ASA Status: II ANE Anesthesia Plan Anesthesia Plan: general endotracheal anesthesia Total IV Anesthesia: Yes
[2018-04-24] MEDS ORDERED: MIDAZOLAM 2 MG/2 ML VIAL IVP ONE (12:32)
[2018-04-24] MEDS ORDERED: fentaNYL 100 MCG/2 ML INJ ONE ×5 (12:56→19:51)
[2018-04-24] MEDS ORDERED: PROPOFOL 200 MG/20 ML VIAL ONE (12:57)
[2018-04-24] MEDS ORDERED: PROPOFOL/EMULSION 500 MG/50 ML BOTTLE IV ONE ×3 (13:07→17:15)
[2018-04-24] MEDS ORDERED: ceFAZolin 1 GM VIAL ONE (17:32)
[2018-04-24] MEDS ORDERED: NALOXONE HCL 0.4 MG/ML INJ IVP PRN ×2 (17:55→18:38)
[2018-04-24] MEDS ORDERED: ONDANSETRON 4 MG/2 ML VIAL IVP PRN (17:55)
[2018-04-24] MEDS ORDERED: oxyCODONE IR 5 MG TAB PO PRN (17:55)
[2018-04-24] MEDS ORDERED: HYDROCODONE/APAP 5/325 TAB PO PRN (17:55)
[2018-04-24] MEDS ORDERED: ACETAMINOPHEN 500 MG TAB PO PRN (17:55)
[2018-04-24] MEDS ORDERED: PROMETHAZINE HCL 25 MG/ML INJ IVP PRN (17:55)
[2018-04-24] MEDS ORDERED: DIAZEPAM 5 MG/ML 1 ML SYR ONE ×2 (17:57→18:23)
--- NOTE | 2018-04-24 17:57 | POSTANESTH ---
Post Anesthetic Evaluation Cardiovascular Status: Normal, Stable, Similar to Pre-Op Cond Respiratory Status: Normal, Stable, Similar to Pre-op Cond. Level of Consciousness/Mental Status: Can Participate in Eval, Alert and Oriented Pain Control: Adequate, Prn Tx Ordered Nausea/Vomiting Control: Adequate, Prn Tx Ordered Complications Possibly Related to Anesthesia: None Noted
[2018-04-24] MEDS: fentaNYL 100 MCG/2 ML INJ IVP PRN ×4 (18:04→19:54)
[2018-04-24] MEDS: DIAZEPAM 5 MG/ML 1 ML SYR IVP PRN ×2 (18:09→18:27)
[2018-04-24] MEDS: HYDROmorphONE/DILAUDID 2 MG/ML INJ IVP PRN ×5 (18:10→19:42)
[2018-04-24] MEDS ORDERED: HYDROmorphONE/DILAUDID 2 MG/ML INJ ONE (18:15)
[2018-04-24] MEDS ORDERED: ONDANSETRON DISINTEGRATING 4 MG TAB PO PRN (18:33)
[2018-04-24] MEDS ORDERED: diphenhydrAMINE 25 MG CAP PO PRN (18:38)
--- NOTE | 2018-04-24 18:43 | POSTOPPROG ---
Post Op Note Date of Operation: 04/24/18 Surgeon: Tristen Gómez Die Stamping Press Operator: Dr. Mcleod Anesthesia: GET(General Endotracheal) Pre-op Diagnosis: LEFT HIP PAIN Post-op Diagnosis: LEFT HIP PAIN Procedure: Left Hip Arthroscopy Inf/Abcess present in the surg proc area at time of surgery?: No
[2018-04-24] MEDS ORDERED: oxyCODONE IR 5 MG TAB ONE (19:41)
[2018-04-24] MEDS: HYDROmorphONE/DILAUDID 6 MG/30 ML PCA IV PRN (21:16)
[2018-04-24] MEDS ORDERED: LIDOCAINE 2% 5 ML SDV ONE (21:26)
[2018-04-24] MEDS ORDERED: ROPIVACAINE HCL 100 MG/20 ML INJ ONE ×2 (21:26)
[2018-04-24] MEDS: NS 1,000 ML IV SCH (22:34)
[2018-04-24] MEDS: oxyCODONE IR 5 MG TAB PO SCH ×2 (22:59→23:20)
[2018-04-24] MEDS: ONDANSETRON 4 MG/2 ML VIAL IVP PRN (23:19)
[2018-04-25] MEDS: DIAZEPAM 2 MG TAB PO PRN ×3 (00:14→15:10)
[2018-04-25] MEDS: ONDANSETRON 4 MG/2 ML VIAL IVP PRN ×2 (01:53→11:17)
[2018-04-25] MEDS: oxyCODONE IR 5 MG TAB PO SCH ×6 (01:53→22:30)
[2018-04-25] MEDS: NS 1,000 ML IV SCH (05:54)
[2018-04-25] MEDS: ACETAMINOPHEN 325 MG TAB PO PRN ×3 (05:57→18:10)
[2018-04-25] MEDS ORDERED: BUPIVACAINE/EPI 0.5% 30 ML SDV ONE (10:24)
--- NOTE | 2018-04-25 13:49 | ASMTCMCOM ---
CM Note CM Note Notes: Pt had planned post op revision Left Hip arthroscopy for GABRIELLA. OT/PT rec home. Anticipate pt will d/c when medically stable and follow MD rec for outpatient PT. No CM d/c needs identified. CM available for changes/needs. Date Signed: 04/25/2018 01:49 PM Electronically Signed By:SYLVIE Montaño
[2018-04-25] MEDS: PROMETHAZINE HCL 25 MG/ML INJ IVP PRN ×2 (14:59→23:03)
[2018-04-25] MEDS: oxyCODONE IR 5 MG TAB PO PRN ×2 (15:11→19:42)
[2018-04-25] MEDS ORDERED: ONDANSETRON DISINTEGRATING 4 MG TAB PO PRN (15:50)
[2018-04-25] MEDS ORDERED: HYDROCODONE/APAP 10/325 TAB PO PRN (15:53)
[2018-04-25] MEDS: HYDROmorphONE/DILAUDID 6 MG/30 ML PCA IV PRN (16:02)
--- NOTE | 2018-04-25 17:21 | SOAPPROG ---
CARLY Progress Note Assessment/Plan: Assessment: 1 day post op Left Hip Arthroscopy with capsular and labral reconstruction Plan: Oxycodone [employer] Phenergn and Zofran for nausea Anesthesiology will discuss another block with Hunter DC home tomorrow 04/25/18 17:18 Subjective: Hunter has been struggling with pain since her surgery. [employer], Oxyodone and a femoral nerve block today have helped to manage her pain. She has had some nausea with vomiting. She is now in hip abduction brace and was instructed that if her QUAD muscle groups are not working due to the femoral block, not to ambulate. She and her plan on returning to [place] tomorrow. Objective: Vital Signs Temp Pulse Resp BP Pulse Ox 37.4 C 90 19 123/82 H 93 04/25/18 16:00 04/25/18 16:00 04/25/18 16:00 04/25/18 16:00 04/25/18 16:00 04/24/18 04/25/18 04/26/18 05:59 05:59 05:59 Intake Total 1400 Output Total 1100 500 Balance 300 -500 Well appearing in NAD Left Hip: dressing with some saturation of serous fluid some ecchymosis and edema she cannot fully contract QUAD muscle group full ROM of foot and ankle - Pending Discharge Pending Discharge Within 24 Hours: Yes Pending Discharge Date: 04/26/18 Pending Discharge Time: 11:00 ICD10 Worksheet Patient Problems: Problems Problem Status Onset Post-operative pain Acute - ICD10 Problem Qualifiers (1) Post-operative pain
--- NOTE | 2018-04-25 18:36 | SOAPPROG ---
SOAP Progress Note Assessment/Plan: Assessment: Plan: 04/25/18 18:32 Saw Hunter today POD1, We had to use regional blocks to alleviate her pain, She did fall yesterday (although I asked her not to get out of bed) and hyperextend her hip, which could potentially negatively affect her surgery. The brace arrived today and I discussed restrictions with her again. Otherwise NV intact, not much oozing. Ready to go when pain well managed Objective: Vital Signs Temp Pulse Resp BP Pulse Ox 37.1 C 89 19 100/76 95 04/25/18 18:09 04/25/18 18:09 04/25/18 18:09 04/25/18 18:09 04/25/18 18:09 04/24/18 04/25/18 04/26/18 05:59 05:59 05:59 Intake Total 1400 Output Total 1100 500 Balance 300 -500 ICD10 Worksheet Patient Problems: Problems Problem Status Onset Post-operative pain Acute
[2018-04-25] MEDS: buPROPion XL 150 MG TAB PO SCH (20:09)
[2018-04-25] MEDS: ARIPiprazole 10 MG TAB PO SCH (20:10)
[2018-04-25] MEDS: PANTOPRAZOLE SODIUM 40 MG TAB PO SCH (20:10)
[2018-04-25] MEDS: ZOLPIDEM TARTRATE 5 MG TAB PO SCH (22:33)
[2018-04-26] MEDS: oxyCODONE IR 5 MG TAB PO SCH ×6 (02:39→22:30)
[2018-04-26] MEDS: ACETAMINOPHEN 325 MG TAB PO PRN ×2 (05:54→20:20)
[2018-04-26] MEDS: oxyCODONE IR 5 MG TAB PO PRN ×4 (07:59→20:18)
[2018-04-26] MEDS: DIAZEPAM 2 MG TAB PO PRN ×2 (08:00→16:02)
[2018-04-26] MEDS: PROMETHAZINE HCL 25 MG/ML INJ IVP PRN ×3 (08:10→22:30)
[2018-04-26] MEDS: PANTOPRAZOLE SODIUM 40 MG TAB PO SCH ×2 (10:15→20:19)
--- NOTE | 2018-04-26 18:55 | SOAPPROG ---
SOAP Progress Note Assessment/Plan: Assessment: 43 yo F POD#2 s/p L hip scope, labral reconstruction, capsular reconstruction. Pain improved with single shot regional blocks yesterday, but worsened after wearing off and concerned about long drive home to [place]. Plan: Will discuss with anesthesia possible regional catheter for pt to be discharged home with in order to better tolerate drive home Continue PO/IV pain control Continue hip abduction brace Possible discharge home tomorrow morning pending regional catheter 04/26/18 18:52 Subjective: Pt reports some pain since blocks worn off. Tolerating brace. Objective: Vital Signs Temp Pulse Resp BP Pulse Ox 37.7 C 93 19 115/74 93 04/26/18 15:28 04/26/18 15:28 04/26/18 15:28 04/26/18 15:28 04/26/18 15:28 04/25/18 04/26/18 04/27/18 05:59 05:59 05:59 Intake Total 1400 1457 Output Total 1100 800 Balance 300 657 Gen: NAD LLE: Hip abduction brace in place Dressings c/d/i Distally 5/5 TA, GSC, EHL SILT throughout foot ICD10 Worksheet Patient Problems: Problems Problem Status Onset Post-operative pain Acute
[2018-04-26] MEDS: buPROPion XL 150 MG TAB PO SCH (20:19)
[2018-04-26] MEDS: ZOLPIDEM TARTRATE 5 MG TAB PO SCH (20:19)
[2018-04-26] MEDS: ARIPiprazole 10 MG TAB PO SCH (20:19)
[2018-04-27] MEDS: oxyCODONE IR 5 MG TAB PO SCH ×3 (02:38→10:14)
[2018-04-27] MEDS: PROMETHAZINE HCL 25 MG/ML INJ IVP PRN ×2 (05:05→11:16)
[2018-04-27 07:43] VITALS: BP 113/81
[2018-04-27] MEDS: PANTOPRAZOLE SODIUM 40 MG TAB PO SCH (08:13)
[2018-04-27] MEDS: DIAZEPAM 2 MG TAB PO PRN (10:13)
--- NOTE | 2018-04-27 10:54 | PDPAINCON ---
Pain Management Consultation Patient referred by : Erin Penaloza - Subjective Pain is: high, but manageable Side effects include: No drowsy, No itchiness Activity: able to ambulate, participating in PT - Objective Technique: single shot nerve block Site: femoral (femoral + fascia iliaca) Continuous infusion: ropivicaine (0.25% ropi 40ml) Sensory and motor exam: consistent with block Vital signs: stable - Assessment/Plan Assessment/Plan: pain well-controlled, continue current mgmt Additional comments: POD 3 s/p left hip arthroscopy, requesting regional anesthesia for analgesia prior to discharge home today. Patient has had 2 femoral/fascia iliaca blocks in the post op period thus far with good effect. She is requesting another prior to her long drive to [place] today. Left femoral and fascia iliaca block with ultrasound guidance performed today. Total volume of 0.25% ropivacaine 40ml injected incrementally. Negative aspiration, negative paresthesia. No complications noted. Patient derived good analgesia within 20 minutes after the block was performed and was satisfied with the result.
--- NOTE | 2018-04-27 14:45 | ASMTLACE ---
LACE Length of stay for Answers: 4-6 days current admission Acuity / Level of Answers: Yes Care: Did the patient have an inpatient admission? Comorbidities - select Answers: Opioid dependence all that apply / Chronic pain # of Emergency department Answers: 0 visits in the last 6 months Social determinants Answers: Mental health diagnosis (anxiety, depression, pers onality disorders, etc.) Score: 14 Date Signed: 04/27/2018 02:45 PM Electronically Signed By:SYLVIE Montaño
== END 2018-04-27 13:18 | disposition home or self-care (01) ==
LOC: FSGY 09:06 → F3E 18:58 → F3N 20:25
PROVIDERS: ADMIT Orthopaedic Surgery Sports Medicine; ATTEND Orthopaedic Surgery Sports Medicine
PROC: 3E0T3BZ Introduction of Anesthetic Agent into Peripheral Nerves and Plexi, Percutaneous Approach (ICD-10-PCS; 2018-04-24)
PROC: 0MQM4ZZ Repair Left Hip Bursa and Ligament, Percutaneous Endoscopic Approach (ICD-10-PCS; principal; 2018-04-24 13:00)
PROC: 0QQ74ZZ Repair Left Upper Femur, Percutaneous Endoscopic Approach (ICD-10-PCS; principal; 2018-04-24 13:00)
PROC: 3E0T3BZ Introduction of Anesthetic Agent into Peripheral Nerves and Plexi, Percutaneous Approach (ICD-10-PCS; 2018-04-25)
PROC: 3E0T3BZ Introduction of Anesthetic Agent into Peripheral Nerves and Plexi, Percutaneous Approach (ICD-10-PCS; 2018-04-27)
DX: M76.891 Other specified enthesopathies of right lower limb, excluding foot (principal); M25.752 Osteophyte, left hip; M65.852 Other synovitis and tenosynovitis, left thigh; M24.152 Other articular cartilage disorders, left hip; G89.18 Other acute postprocedural pain
CPT/HCPCS: 29914; 29916; 64447; 97116; 97161; 97166; 97530; 97535; G0378; C1713; C1762; J0171; J0690; J1170; J2405; J2550; J2704; J2795; J3010; J3360